=== PATIENT | male | born 1935 | race Caucasian/White ===

== ENCOUNTER → 2019-05-20 | Outpatient (CLI) | payer MEDICARE, OTHER ==
[~2019-05-20] MED LIST: REGADENOSON 0.4 MG/5 ML DISP.SYRIN. IV ONE
--- NOTE | 2019-05-28 17:08 | PCVCIMAG ---
APPROVED REPORT Imaging Protocol: Rest Tc-99m/Stress Tc-99m 1 day Study performed: 05/20/2019 09:56:42 Indication: CAD, Dyspnea, Chest pain Patient Location: Out-Patient Stress Nurse: Keyana Delgado RN, Maria Del Carmen aVil RN [place] Tech:Cherise Emerita [facility] Ht: 5 ft 10 in Wt: 160 lbs BSA: 1.90 m2 HR: 47 bpm BP: 198/90 mmHg BMI: 22.9 Rhythm: Marked Sinus Bradycardia, 1st degree AV block Medical History Medical History: Hyperlipidemia, HTN, CAD, Parkinson's Medications: Crestor Allergies: No known drug allergies Cardiac Risk Factors: Age Pretest Chest Pain Characteristics: No chest pain Exercise History: Sedentary Resting Data Rest SPECT myocardial perfusion imaging was performed in supine position 45 minutes following the intravenous injection of 10.1 mCi of Tc-99m Sestamibi. Time of rest injection: 1000 Date: 05/20/2019 Administration Route: IV Administration Site: Right Arm Pharmacologic Stress Pharmacologic stress test was performed by injecting Regadenoson 0.4 mg IV push over 10-15 seconds immediately followed by the intravenous injection of 33.9 mCi of Tc-99m Sestamibi. Time of stress injection: 1130 Date: 05/20/2019 Administration Route: IV Administration Site: Right Arm Heart Rate at time of stress injection: 45 bpm. The images were gated to evaluate regional wall motion and calculate left ventricular ejection fraction. Stress Test Details Stress Test: Pharmacologic stress testing performed using 0.4 mg of regadenoson per 5 mL given IV over 10 seconds. Reason for pharmacologic stress test: physical limitation, Parkinson's. HRMax Heart Rate (APMHR): 134 bpm Resting HR: 47 bpmTarget HR (85% APMHR): 113 bpm Max HR Achieved: 50 bpm % of APMHR: 37 Recovery HR: 50 bpm BP Resting BP: 198/90 mmHg Max BP: 209/86 mmHg Recovery BP: 200/85 mmHg ECG Resting ECG: Marked Sinus Bradycardia, 1st degree AV block Stress ECG: Sinus Bradycardia, 1st degree AV block Arrhythmia: PVC's Recovery ECG: Sinus Bradycardia, 1st degree AV block Clinical Reason for Termination: Completed protocol Stress Symptoms: Abdominal discomfort, Headache Symptoms resolved with caffeine. Stress ECG Conclusion ECG: Non-ischemic Study Quality Study: Good Study Data Post stress, the left ventricular ejection was 55%.. SSS: 8 SRS: 1 SDS: 7 TID = 0.95. Perfusion Medium sized area of moderate reversible ischemia involving the mid/apical anterior left ventricle consistent with a left anterior descending distribution. Medium sized area of mild reversible ischemia involving the inferolateral left ventricle consistent with a circumflex distribution. Wall Motion Normal left ventricular function with no regional wall motion abnormalities. Nuclear Conclusion Medium sized area of moderate reversible ischemia involving the mid/apical anterior left ventricle consistent with a left anterior descending distribution. Medium sized area of mild reversible ischemia involving the inferolateral left ventricle consistent with a circumflex distribution. Above findings are new since May 2016. Post stress, the left ventricular ejection was 55%. Interpreted by: Riky Walter MD Electronically Approved: 05/20/2019 14:19:57 <Conclusion> ECG: Non-ischemic
== END | disposition home or self-care (01) ==
LOC: PCVCIMAG 09:32
PROVIDERS: ATTEND Internal Medicine Cardiovascular Disease
DX: I25.10 Atherosclerotic heart disease of native coronary artery without angina pectoris (principal); R06.00 Dyspnea, unspecified; R07.9 Chest pain, unspecified
CPT/HCPCS: 78452; 93017; A9500; J2785

== ENCOUNTER → 2019-05-29 | Outpatient (CLI) | payer MEDICARE, OTHER | END | disposition home or self-care (01) | LOC: PCVCCLINIC 12:30 | PROVIDERS: ATTEND Internal Medicine Cardiovascular Disease | DX: I25.10 Atherosclerotic heart disease of native coronary artery without angina pectoris (principal); I35.1 Nonrheumatic aortic (valve) insufficiency; R07.9 Chest pain, unspecified; R06.02 Shortness of breath; R06.00 Dyspnea, unspecified; R53.83 Other fatigue; E78.00 Pure hypercholesterolemia, unspecified; I10 Essential (primary) hypertension; G20 Parkinson's disease; R00.1 Bradycardia, unspecified; E78.5 Hyperlipidemia, unspecified; Z79.82 Long term (current) use of aspirin; Z88.8 Allergy status to other drugs, medicaments and biological substances; Z79.899 Other long term (current) drug therapy | CPT/HCPCS: 36415; 80061; 93005; G0463 ==

== ENCOUNTER → 2019-05-29 | Outpatient (CLI) | payer MEDICARE, OTHER ==
--- NOTE | 2019-05-29 13:48 | PCVCIMAG ---
EXAM: BILATERAL CAROTID DUPLEX INDICATION: Carotid Occlusive Disease. FINDINGS: Doppler Measurements (centimeters per second): RIGHT: Peak [id number], Peak ECA-80, Diastolic ICA-12, Peak ICA-78, ICA/CCA Ratio-0.7. LEFT: Peak CCA-89, Peak ECA-82, Diastolic ICA-10, Peak ICA-67, ICA/CCA Ratio-0.8. RIGHT CAROTID: The carotid bulb has moderate plaque. The proximal internal carotid artery shows <40% stenosis. The common carotid artery shows no significant stenosis. The external carotid artery shows no significant stenosis. LEFT CAROTID: The carotid bulb has moderate plaque. The proximal internal carotid artery shows <40% stenosis. The common carotid artery shows no significant stenosis. The external carotid artery shows no significant stenosis. Antegrade flow in both vertebral arteries. IMPRESSION: <40% stenosis of the right internal carotid artery with moderate plaque. <40% stenosis of the left internal carotid artery with moderate plaque. LOC:[place] [id number]
--- NOTE | 2019-05-29 16:21 | PCVCIMAG ---
APPROVED REPORT Study performed: 05/29/2019 12:42:15 EXAM: Comprehensive 2D, Doppler, and color-flow Echocardiogram Patient Location: Echo lab Status: routine BSA: 1.90 HR: 47 bpmBP: 160/70 mmHg Rhythm: Bradycardia Other Information Study Quality: Adequate Indications Murmur Dyspnea CAD aortic insufficiency 2D Dimensions IVSd: 13.56 (7-11mm)LVOT Diam: 20.96 (18-24mm) LVDd: 46.64 mm PWd: 11.90 (7-11mm)Ascending Ao: 37.60 (22-36mm) LVDs: 33.93 (25-40mm) Left Atrium: 42.29 (27-40mm) Aortic Root: 37.18 mm LV Single Plane 4CH: 57.36 % LV Single Plane 2CH: 62.61 % Biplane EF: 61.1 % Volumes Left Atrial Volume (Systole) Single Plane 4CH: 93.31 mLSingle Plane 2CH: 96.87 mL LA ESV Index: 51.00 mL/m2 Aortic Valve AoV Peak Rio.: 2.84 m/s AO Peak Gr.: 32.23 mmHgLVOT Max P.09 mmHg AO Mean Gr.: 12.09 mmHgLVOT Mean P.73 mmHg AO V2 Mean: 1.58 m/sLVOT Max V: 1.42 m/s AO V2 VTI: 74.48 cmLVOT Mean V: 0.87 m/s SMITH (VTI): 1.55 [id number] V1 VTI: 33.42 cm SMITH Vmax: 1.73 cm2 SV (LVOT): 115.24 mL Mitral Valve E/A Ratio: 0.7 MV Decel. Time: 362.68 ms MV E Max Rio.: 0.62 m/s MV A Rio.: 0.94 m/s IVRT: 198.39 ms Pulmonary Valve PV Peak Rio.: 1.04 m/sPV Peak Gr.: 4.30 mmHg Pulmonary Vein P Vein S: 0.28 m/sP Vein A: 0.34 m/s P Vein D: 0.43 m/sP Vein A Dur.: 166.1 msec P Vein S/D Ratio: 0.65 Tricuspid Valve TR Peak Rio.: 2.96 m/s TR Peak Gr.: 35.13 mmHg Left Ventricle The left ventricle is normal size. There is normal LV segmental wall motion. Mild concentric left ventricular hypertrophy. Left ventricular systolic function is normal. The left ventricular ejection fraction is within the normal range. LVEF is 60%. Grade I - abnormal relaxation pattern. Right Ventricle The right ventricle is normal size. The right ventricular systolic function is normal. Atria Left atrium is moderately dilated. Right atrium is mildly dilated. Aortic Valve The aortic valve is mildly calcified. The aortic valve is trileaflet. Moderate to severe, eccentric aortic regurgitation. There is mild valvular aortic stenosis. Calculated aortic valve area is 1.7 cm2 with maximum pressure gradient of 32 mmHg and mean pressure gradient of 12 mmHg. Mitral Valve The mitral valve is normal in structure. Mild mitral regurgitation. No evidence of mitral valve stenosis. Tricuspid Valve The tricuspid valve is normal in structure. Mild tricuspid regurgitation with PAP of 42 mmHg. Pulmonic Valve The pulmonary valve is normal in structure. Mild to moderate pulmonic regurgitation. Great Vessels The aortic root is normal in size. IVC is normal in size and collapses >50% with inspiration. Pericardium There is no pericardial effusion. There is no pleural effusion. <Conclusion> The left ventricle is normal size. Mild concentric left ventricular hypertrophy. LVEF is 60%. Grade I - abnormal relaxation pattern. Left atrium is moderately dilated. The aortic valve is mildly calcified. The aortic valve is trileaflet. Moderate to severe, eccentric aortic regurgitation. There is mild valvular aortic stenosis. Calculated aortic valve area is 1.7 cm2 with maximum pressure gradient of 32 mmHg and mean pressure gradient of 12 mmHg. Mild mitral regurgitation. Mild tricuspid regurgitation with PAP of 42 mmHg. Mild to moderate pulmonic regurgitation. The aortic root is normal in size. There is no pericardial effusion.
== END | disposition home or self-care (01) ==
LOC: PCVCIMAG 12:39
PROVIDERS: ATTEND Internal Medicine Cardiovascular Disease
DX: I65.23 Occlusion and stenosis of bilateral carotid arteries (principal); I08.8 Other rheumatic multiple valve diseases; I25.10 Atherosclerotic heart disease of native coronary artery without angina pectoris; E78.00 Pure hypercholesterolemia, unspecified; I10 Essential (primary) hypertension; G20 Parkinson's disease; E78.5 Hyperlipidemia, unspecified; Z79.899 Other long term (current) drug therapy
CPT/HCPCS: 36415; 80061; 93005; 93306; 93880; G0463